=== PATIENT | male | born 1930 | race African-American/Black ===

== ENCOUNTER 2021-01-02 23:16 | Emergency (ER) | payer MEDICARE ==
[~2021-01-02] VITALS: Ht 177.8 cm; Wt 91.0 kg
[2021-01-03] MEDS ORDERED: ACETAMINOPHEN 325MG TABLET PO ONE
[2021-01-03] MEDS ORDERED: LIDOCAINE HCL/PF 1% 10 MG/ML 5ML VIAL IJ ONE (01:45)
[2021-01-03] MEDS ORDERED: BACITRACIN ZINC OINT UDPKT TOP ONE (01:45)
[2021-01-03 03:00] VITALS: BP 166/86
== END 2021-01-03 03:10 | disposition home or self-care (01) ==
LOC: ER 23:16
DX: S01.312A Laceration without foreign body of left ear, initial encounter (principal); S43.402A Unspecified sprain of left shoulder joint, initial encounter; E11.9 Type 2 diabetes mellitus without complications; I10 Essential (primary) hypertension; W01.0XXA Fall on same level from slipping, tripping and stumbling without subsequent striking against object, initial encounter; Y93.9 Activity, unspecified; Y92.9 Unspecified place or not applicable; Z86.73 Personal history of transient ischemic attack (TIA), and cerebral infarction without residual deficits
CPT/HCPCS: 12011; 70450; 72125; 73030; 99285; J3490; 12001